=== PATIENT | male | born 1950 | race Caucasian/White ===

== ENCOUNTER → 2021-08-23 | Day surgery (SDC) | payer MEDICARE ==
[2021-08-23] VITALS (13 sets, daily range): BP systolic 137–181; BP diastolic 65–96
[~2021-08-23] VITALS: Ht 172.7 cm; Wt 57.2 kg
[~2021-08-23] MED LIST: ALBUTEROL0.63 MG/3 NEB; ALBUTEROL1.25 MG/3 NEB; ALPRAZOLAM 0.5 MG TAB ONE; ALPRAZOLAM0.25 MG PO; AMLODIPINE BESYL5 MG PO; ASPIRIN 325 MG TAB ONE; ASPIRIN325 MG PO; ATORVASTATIN CA20 MG PO; ATROVENT HFA12.9 GM INH; DIPHENHYDRAMINE HCL 25 MG CAP ONE; FENTANYL CITRATE/PF 100MCG/2 ML INJ ONE; FLOMAX0.4 MG PO; HEPARIN SOD/SOD CHLORIDE 2,000 ML ONE; HYDRALAZINE HCL 20 MG/ML VIAL ONE; IOPAMIDOL 300MG/ML 100 ML INFUS..BTL IV ONE; LIDOCAINE HCL 2% LOCAL 20 ML VIAL ONE; MIDAZOLAM HCL 2 MG/2 ML VIAL ONE; NITROGLYCERIN0.4 MG SL; OVAR; PRASUGREL 10 MG TAB ONE; SODIUM CHLORIDE 0.9% 1000ML 1,000 ML ONE; SODIUM CHLORIDE 0.9% 50ML 50 ML ONE; TRELEGY ELLIPT1 EACH; ULTRAM50 MG PO; VERAPAMIL HCL 2.5 MG/ML 2 ML VIAL ONE
== END | disposition home or self-care (01) ==
LOC: CATH LAB 08:55
PROVIDERS: ATTEND Internal Medicine Interventional Cardiology
DX: I70.213 Atherosclerosis of native arteries of extremities with intermittent claudication, bilateral legs (principal); I25.2 Old myocardial infarction; I10 Essential (primary) hypertension; E78.2 Mixed hyperlipidemia; J44.9 Chronic obstructive pulmonary disease, unspecified; F17.200 Nicotine dependence, unspecified, uncomplicated; Z79.82 Long term (current) use of aspirin; Z79.899 Other long term (current) drug therapy; Z82.49 Family history of ischemic heart disease and other diseases of the circulatory system; Z82.3 Family history of stroke
CPT/HCPCS: 37186; 37221; 37225; 75625; 76937; C1724; C1725 ×2; C1766; C1769 ×3; C1876; C1887 ×2; C1894; C2623; J0360; J2001; J2250; J3010; J7030; Q9967; 37224; 75630; 99152; 99153